=== PATIENT | female | born 1985 | race Caucasian/White ===

== ENCOUNTER 2017-10-14 06:26 | Inpatient (IN) | payer BC ==
[2017-10-14] MEDS ORDERED: Ondansetron 4 MG/2 ML SDV IVPUSH PRN (07:58)
[2017-10-14] MEDS ORDERED: Sodium Chloride 0.9% 10 ML Syringe FLUSH PRN ×2 (07:58→09:21)
[2017-10-14] MEDS ORDERED: Lactated Ringers 1,000 ML IV SCH ×3 (08:00→09:30)
[2017-10-14] MEDS ORDERED: fentaNYL 100 MCG/2 ML SDV IVPUSH PRN (08:11)
[2017-10-14] MEDS ORDERED: Oxytocin/Lactated Ringers 10 UNIT/1,000 ML BAG IV ONE (08:55)
[2017-10-14] MEDS ORDERED: Lidocaine 1% 50 ML MDV ONE (08:55)
[2017-10-14] MEDS ORDERED: Lidocaine 1% 50 ML MDV INJECT ONE (09:21)
[2017-10-14] MEDS ORDERED: Oxytocin/Lactated Ringers 10 UNIT/1,000 ML BAG IV SCH (09:30)
--- NOTE | 2017-10-14 09:58 | PCM.LDHP ---
L&D History of Present Illness - General Date of Service: 10/14/17 Admit Problem/Dx: Patient Status Order with Admit Dx/Problem 10/14/17 07:58 Patient Status [ADT] Routine 10/14/17 09:24 Patient Status [ADT] Routine Admission Diagnosis/Problem Admission Diagnosis/Problem labor Source of Information: Patient History Limitations: Reports: No Limitations - History of Present Illness Introduction:: 32 year old female at 32 weeks gestation started having vomiting and diarrhea yesterday and then started having abdominal cramping this am about 0500. She thinks that she may have had a fever yesterday, she was feeling really hot. She denied any respiratory symptoms. She presented to Labor and Delivery at 0630 and the monitor showed a reactive FHR and occasional uterine tightening. She was uncomfortable and vomited while here and had diarrhea as well. IV was started to bolus with fluids for dehydration and she was given IV zofran 4 mg and IV fentanyl at 0830 for the cramping. She had SROM at 0846 for large amount of clear fluid. The RN checked her and she was completely dilated and I was notified. Current complicated by RH negative status, given Rhogam on 09/20/17. She has anxiety and depression and continued her psych meds, sertraline and bupsirone and trazodone throughout her . She did receive her Tdap on 03/30 as well and had influenza vaccine on 06/24/17. Her previous delivery was at 39 weeks and was a for a 5 lb 15 oz boy. Pain Score: 10 - Related Data Allergies/Adverse Reactions: Allergies Allergy/AdvReac Type Severity Reaction Status Date / Time No Known Allergies Allergy Verified 10/14/17 07:31 Home Medications: Home Meds Vit #76/Iron,Carb/Fa [Pnv 29-1 Tablet] 1 tab PO DAILY 10/14/17 [History ] Sertraline [Zoloft] 100 mg PO DAILY 10/14/17 [History] busPIRone [Buspar] 15 mg PO BEDTIME 10/14/17 [History] diphenhydrAMINE [Benadryl] 25 mg PO BEDTIME 10/14/17 [History] traZODone 150 mg PO BEDTIME 10/14/17 [History] Past Medical History Psychiatric History: Reports: Anxiety, Depression - Infectious Disease History Infectious Disease History: Reports: Human Papilloma Virus (HPV) Social & Family History - Tobacco Use Smoking Status *Q: Never Smoker - Alcohol Use Alcohol Use History: No - Recreational Drug Use Recreational Drug Use: No - Living Situation & Occupation Living situation: Reports: Other (Currently in the process of a divorce. She has been living with the father of this baby in [place].) H&P Review of Systems - Review of Systems: Review Of Systems: See Below General: Reports: Fever HEENT: Reports: No Symptoms Pulmonary: Reports: No Symptoms Cardiovascular: Reports: No Symptoms Gastrointestinal: Reports: Abdominal Pain, Diarrhea, Nausea, Vomiting Genitourinary: Reports: No Symptoms Musculoskeletal: Reports: Back Pain Skin: Reports: No Symptoms Psychiatric: Reports: Anxiety Neurological: Reports: No Symptoms Hematologic/Lymphatic: Reports: No Symptoms Immunologic: Reports: No Symptoms L&D Exam - Exam Exam: See Below - Vital Signs Vital Signs: Last Vital Signs Temp 36.6 C 10/14/17 07:27 Pulse 100 10/14/17 07:27 Resp 20 10/14/17 07:27 BP 123/69 10/14/17 07:27 Pulse Ox Weight: 89.494 kg - OB Specific Contraction Frequency (min): 2 Contraction Intensity: Mild to Moderate Movement: Active Heart Tones: Present Heart Tones per Min: 150 Heart Rate (FHR) Variability: Moderate (6-25 bmp) Presentation: Vertex - Exam General: Alert, Oriented, Moderate Distress HEENT: Conjunctiva Clear, Other (dry mucus membranes) Neck: Supple Lungs: Clear to Auscultation, Normal Respiratory Effort Cardiovascular: Regular Rate, Regular Rhythm GI/Abdominal Exam: Normal Bowel Sounds, No Distention Rectal Exam: Deferred Genitourinary: Deferred Back Exam: Normal Inspection Extremities: Normal Inspection, No Pedal Edema Skin: Warm, Dry, Intact Neurological: Normal Speech Psychiatric: Alert, Anxious - Patient Data Lab Results Last 24 hrs: Laboratory Results - last 24 hr 10/14/17 10/14/17 10/14/17 Range/Units 08:20 08:20 09:44 WBC 13.73 H (3.98-10.04) K/mm3 RBC 4.54 (3.98-5.22) M/mm3 Hgb 13.6 (11.2-15.7) gm/L Hct 40.5 (34.1-44.9) % MCV 89.2 (79.4-94.8) fl MCH 30.0 (25.6-32.2) pg MCHC 33.6 (32.2-35.5) g/dl RDW Std Deviation 43.3 (36.4-46.3) fL Plt Count 247 (182-369) K/mm3 MPV 9.8 (9.4-12.3) fl Neut % (Auto) 83.3 H (34.0-71.1) % Lymph % (Auto) 7.6 L (19.3-51.7) % [place] % (Auto) 7.9 (4.7-12.5) % Eos % (Auto) 0.1 L (0.7-5.8) Baso % (Auto) 0.2 (0.1-1.2) % Neut # (Auto) 11.44 H (1.56-6.13) K/mm3 Lymph # (Auto) 1.04 L (1.18-3.74) K/mm3 [place] # (Auto) 1.08 H (0.24-0.36) K/mm3 Eos # (Auto) 0.01 L (0.04-0.36) K/mm3 Baso # (Auto) 0.03 (0.01-0.08) K/mm3 Manual Slide Review Normal smear Cord VBG pH 7.30 (7.28-7.40) Cord VBG pCO2 37.5 (32.8-38.6) Cord VBG pO2 23 L (28-32) Cord VBG HCO3 18 L (19-24) Cord VBG Base Excess -7.3 L (-4.4-0.4) Sodium 140 (136-145) mEq/L Potassium 3.4 L (3.5-5.1) mEq/L Chloride 105 (98-107) mEq/L Carbon Dioxide 17 L (21-32) mEq/L Anion Gap 21.4 H (5-15) BUN 8 (7-18) mg/dL Creatinine 0.9 (0.55-1.02) mg/dL Est Cr Clr Drug Dosing 84.01 mL/min Estimated GFR (MDRD) > 60 (>60) mL/min BUN/Creatinine Ratio 8.9 L (14-18) Glucose 129 H (74-106) mg/dL Calcium 9.1 (8.5-10.1) mg/dL Total Bilirubin 0.4 (0.2-1.0) mg/dL AST 12 L (15-37) U/L ALT 14 (14-59) U/L Alkaline Phosphatase 100 (46-116) U/L Total Protein 7.5 (6.4-8.2) g/dl Albumin 3.0 L (3.4-5.0) g/dl Globulin 4.5 gm/dL Albumin/Globulin Ratio 0.7 L (1-2) Result Diagrams: 10/14/17 08:20 10/14/17 08:20 - Problem List (1) labor in third trimester SNOMED Code(s): 1228151 ICD Code: O60.03 - LABOR WITHOUT DELIVERY, THIRD TRIMESTER Status: Acute Current Visit: Yes Qualifiers: labor delivery status: without delivery Qualified Code(s): O60.03 - labor without delivery, third trimester (2) Vomiting and diarrhea SNOMED Code(s): 964381165 ICD Code: R11.10 - VOMITING, UNSPECIFIED; R19.7 - DIARRHEA, UNSPECIFIED Status: Acute Current Visit: Yes (3) Dehydration SNOMED Code(s): 20518674 ICD Code: E86.0 - DEHYDRATION Status: Acute Current Visit: Yes Problem List Initiated/Reviewed/Updated: Yes Orders Last 24hrs: Active Orders 24 hr Category Date Time Status Patient Status Manage Transfer [TRANSFER] Routine ADT 10/14/17 09:37 Ordered Patient Status [ADT] Routine ADT 10/14/17 09:24 Active Activity as Tolerated [RC] PFP Care 10/14/17 09:21 Active Communication Order [RC] ASDIRECTED Care 10/14/17 09:21 Active Heart Tones [RC] ASDIRECTED Care 10/14/17 09:21 Active Monitoring [RC] CONTINUOUS Care 10/14/17 08:02 Active Non Stress Test [RC] PER UNIT ROUTINE Care 10/14/17 07:58 Active Notify Provider [RC] PFP Care 10/14/17 09:21 Active Notify Provider [RC] PRN Care 10/14/17 09:21 Active Peripheral IV Care [RC] . DIRECTED Care 10/14/17 08:09 Active Peripheral IV Care [RC] . DIRECTED Care 10/14/17 09:21 Active Vital Signs [RC] PER UNIT ROUTINE Care 10/14/17 07:58 Active Vital Signs [RC] PER UNIT ROUTINE Care 10/14/17 09:21 Active Clear Liquid Diet [DIET] Diet 10/14/17 Breakfast Active CULTURE URINE [RM] Stat Lab 10/14/17 07:58 Ordered UA W/MICROSCOPIC [URIN] Stat Lab 10/14/17 07:58 Ordered Lactated Ringers [Ringers, Lactated] 1,000 ml Med 10/14/17 08:00 Active IV .BOLUS Lactated Ringers [Ringers, Lactated] 1,000 ml Med 10/14/17 08:00 Active IV ASDIRECTED Lactated Ringers [Ringers, Lactated] 1,000 ml Med 10/14/17 09:30 Active IV ASDIRECTED Ondansetron [Zofran] Med 10/14/17 07:58 Active 4 mg IVPUSH Q4H PRN Oxytocin/Lactated Ringers [Pitocin in LR 10 Units/1,000 Med 10/14/17 09:30 Active ML] 10 unit in 1,000 ml IV .CONTINUOUS Sodium Chloride 0.9% [Saline Flush] Med 10/14/17 07:58 Active 10 ml FLUSH ASDIRECTED PRN Sodium Chloride 0.9% [Saline Flush] Med 10/14/17 09:21 Active 10 ml FLUSH ASDIRECTED PRN fentaNYL [Sublimaze] Med 10/14/17 08:11 Active 50 mcg IVPUSH Q1H PRN Electronic Heart Tones Ext w TOCO [WOMSER] Oth 10/14/17 09:21 Ordered Routine Electronic Heart Tones Internal [WOMSER] Per Unit Oth 10/14/17 09:21 Ordered Routine Peripheral IV Insertion Adult [OM.PC] Routine Oth 10/14/17 09:21 Ordered Peripheral IV Insertion Adult [OM.PC] Urgent Oth 10/14/17 07:58 Ordered Resuscitation Status Routine Resus Stat 10/14/17 07:58 Ordered Medication Orders Fentanyl (Sublimaze) 50 mcg IVPUSH Q1H PRN PRN Reason: Pain Last Admin: 10/14/17 08:36 Dose: 50 mcg Lactated Ringer's (Ringers, Lactated) 1,000 mls @ 1,000 mls/hr IV .BOLUS CHERIE Last Admin: 10/14/17 08:00 Dose: 1,000 mls/hr Lactated Ringer's (Ringers, Lactated) 1,000 mls @ 500 mls/hr IV ASDIRECTED CHERIE Lactated Ringer's (Ringers, Lactated) 1,000 mls @ 100 mls/hr IV ASDIRECTED CHERIE Oxytocin/Lactated Ringer's (Pitocin In Lr 10 Units/1,000 Ml) 10 unit in 1,000 mls @ 500 mls/hr IV .CONTINUOUS CHERIE Ondansetron HCl (Zofran) 4 mg IVPUSH Q4H PRN PRN Reason: Nausea/Vomiting Last Admin: 10/14/17 08:32 Dose: 4 mg Sodium Chloride (Saline Flush) 10 ml FLUSH ASDIRECTED PRN PRN Reason: Keep Vein Open Sodium Chloride (Saline Flush) 10 ml FLUSH ASDIRECTED PRN PRN Reason: Keep Vein Open Assessment/Plan Comment:: 32 year old female presented with vomiting and diarrhea and abdominal cramping at 32 weeks gestation and determined to be in labor with subsequent SROM. Will deliver here with pediatrics present and plan to transfer to NICU in [place] once baby is stable.
[2017-10-14] MEDS ORDERED: NS + KCl 20mEq/L 1,000 ML IV SCH (10:45)
--- NOTE | 2017-10-14 10:45 | PCM.DEL ---
L & D Note - General Info Date of Service: 10/14/17 Mother's Due Date: 12/05/17 - Delivery Note Labor: Spontaneous Delivery Outcome: Livebirth Infant Delivery Method: Spontaneous Vaginal Delivery-Single Infant Delivery Mode: Spontaneous Presentation: Right Occiput Anterior (MI) Nuchal Cord: None Anesthesia Type: Other (see below) (fentanyl 50 mcg iv) Amniotic Fluid Description: Clear Episiotomy Type: None Laceration: Labial Suture type: Vicryl Suture size: 4-0 Placenta: Intact, Spontaneous Cord: 3 Vessels Estimated Blood Loss: 100 Resuscitation Needed: Yes [place]: Suctioned, Bulb Syringe, Warmer Used (Baby was bagged and given oxygen) Provider: Eric Wagner Score 1 min: 2 Score 5 min: 6 Score 10 min: 8 Delivery Comments (Free Text/Narrative):: Precipitous delivery of male infant after SROM. Head delivered from MI position, there was no nuchal cord. The rest of the baby delivered without difficulty. Baby was dried and stimulated and cord was clamped and cut and baby passed to the senior software developer for further resuscitation. Cord blood taken and segment of cord sent to do cord gases. Pitocin IV infusion started after delivery of the baby. Placenta delivered spontaneously and was intact. There were 3 vessels in the cord. Fundus firmed down well. There was a small laceration on the right labia that was repaired with 2 simple sutures using 4-0 Vicryl.EBL 100 ml. Mom is stable and baby is stable in the nursery awaiting transport to the NICU in [place]. - Patient Data Vitals - Most Recent: Last Vital Signs Temp 36.6 C 10/14/17 07:27 Pulse 100 10/14/17 07:27 Resp 20 10/14/17 07:27 BP 123/69 10/14/17 07:27 Pulse Ox Weight - Most Recent: 89.494 kg I&O - Last 24 Hours: Intake & Output 10/13/17 10/14/17 10/14/17 22:59 06:59 14:59 Intake Total 1999 Balance 1999 Lab Results Last 24 Hours: Laboratory Results - last 24 hr 10/14/17 10/14/17 10/14/17 Range/Units 08:20 08:20 09:44 WBC 13.73 H (3.98-10.04) K/mm3 RBC 4.54 (3.98-5.22) M/mm3 Hgb 13.6 (11.2-15.7) gm/L Hct 40.5 (34.1-44.9) % MCV 89.2 (79.4-94.8) fl MCH 30.0 (25.6-32.2) pg MCHC 33.6 (32.2-35.5) g/dl RDW Std Deviation 43.3 (36.4-46.3) fL Plt Count 247 (182-369) K/mm3 MPV 9.8 (9.4-12.3) fl Neut % (Auto) 83.3 H (34.0-71.1) % Lymph % (Auto) 7.6 L (19.3-51.7) % [place] % (Auto) 7.9 (4.7-12.5) % Eos % (Auto) 0.1 L (0.7-5.8) Baso % (Auto) 0.2 (0.1-1.2) % Neut # (Auto) 11.44 H (1.56-6.13) K/mm3 Lymph # (Auto) 1.04 L (1.18-3.74) K/mm3 [place] # (Auto) 1.08 H (0.24-0.36) K/mm3 Eos # (Auto) 0.01 L (0.04-0.36) K/mm3 Baso # (Auto) 0.03 (0.01-0.08) K/mm3 Manual Slide Review Normal smear Cord VBG pH 7.30 (7.28-7.40) Cord VBG pCO2 37.5 (32.8-38.6) Cord VBG pO2 23 L (28-32) Cord VBG HCO3 18 L (19-24) Cord VBG Base Excess -7.3 L (-4.4-0.4) Sodium 140 (136-145) mEq/L Potassium 3.4 L (3.5-5.1) mEq/L Chloride 105 (98-107) mEq/L Carbon Dioxide 17 L (21-32) mEq/L Anion Gap 21.4 H (5-15) BUN 8 (7-18) mg/dL Creatinine 0.9 (0.55-1.02) mg/dL Est Cr Clr Drug Dosing 84.01 mL/min Estimated GFR (MDRD) > 60 (>60) mL/min BUN/Creatinine Ratio 8.9 L (14-18) Glucose 129 H (74-106) mg/dL Calcium 9.1 (8.5-10.1) mg/dL Total Bilirubin 0.4 (0.2-1.0) mg/dL AST 12 L (15-37) U/L ALT 14 (14-59) U/L Alkaline Phosphatase 100 (46-116) U/L Total Protein 7.5 (6.4-8.2) g/dl Albumin 3.0 L (3.4-5.0) g/dl Globulin 4.5 gm/dL Albumin/Globulin Ratio 0.7 L (1-2) Med Orders - Current: Current Medications Fentanyl (Sublimaze) 50 mcg IVPUSH Q1H PRN PRN Reason: Pain Last Admin: 10/14/17 08:36 Dose: 50 mcg Lactated Ringer's (Ringers, Lactated) 1,000 mls @ 1,000 mls/hr IV .BOLUS CHERIE Last Admin: 10/14/17 08:00 Dose: 1,000 mls/hr Lactated Ringer's (Ringers, Lactated) 1,000 mls @ 500 mls/hr IV ASDIRECTED CHERIE Last Admin: 10/14/17 10:12 Dose: 500 mls/hr Lactated Ringer's (Ringers, Lactated) 1,000 mls @ 100 mls/hr IV ASDIRECTED CHERIE Oxytocin/Lactated Ringer's (Pitocin In Lr 10 Units/1,000 Ml) 10 unit in 1,000 mls @ 500 mls/hr IV .CONTINUOUS CHERIE Last Admin: 10/14/17 08:57 Dose: 500 mls/hr Potassium Chloride/Sodium Chloride (Normal Saline With 20 Meq Kcl) 1,000 mls @ 150 mls/hr IV ASDIRECTED CHERIE Ondansetron HCl (Zofran) 4 mg IVPUSH Q4H PRN PRN Reason: Nausea/Vomiting Last Admin: 10/14/17 08:32 Dose: 4 mg Sodium Chloride (Saline Flush) 10 ml FLUSH ASDIRECTED PRN PRN Reason: Keep Vein Open Sodium Chloride (Saline Flush) 10 ml FLUSH ASDIRECTED PRN PRN Reason: Keep Vein Open Discontinued Medications Oxytocin/Lactated Ringer's (Pitocin In Lr 10 Units/1,000 Ml) Confirm Administered Dose 10 unit in 1,000 mls @ as directed IV .STK-MED ONE Stop: 10/14/17 08:56 Last Admin: 10/14/17 10:12 Dose: Not Given Lidocaine HCl (Xylocaine 1%) Confirm Administered Dose 50 ml .ROUTE .STK-MED ONE Stop: 10/14/17 08:56 Last Admin: 10/14/17 10:12 Dose: Not Given Lidocaine HCl (Xylocaine 1%) 50 ml INJECT ONETIME ONE Stop: 10/14/17 09:22 Last Admin: 10/14/17 08:55 Dose: 50 ml - Problem List & Annotations (1) labor in third trimester SNOMED Code(s): 3427008 Code(s): O60.03 - LABOR WITHOUT DELIVERY, THIRD TRIMESTER Status: Acute Current Visit: Yes Qualifiers: labor delivery status: without delivery Qualified Code(s): O60.03 - labor without delivery, third trimester (2) Vomiting and diarrhea SNOMED Code(s): 038699822 Code(s): R11.10 - VOMITING, UNSPECIFIED; R19.7 - DIARRHEA, UNSPECIFIED Status: Acute Current Visit: Yes (3) Dehydration SNOMED Code(s): 85047473 Code(s): E86.0 - DEHYDRATION Status: Acute Current Visit: Yes - Problem List Review Problem List Initiated/Reviewed/Updated: Yes - My Orders Last 24 Hours: My Active Orders 10/14/17 07:58 Non Stress Test [RC] PER UNIT ROUTINE Vital Signs [RC] PER UNIT ROUTINE CULTURE URINE [RM] Stat UA W/MICROSCOPIC [URIN] Stat Ondansetron [Zofran] 4 mg IVPUSH Q4H PRN Sodium Chloride 0.9% [Saline Flush] 10 ml FLUSH ASDIRECTED PRN Peripheral IV Insertion Adult [OM.PC] Urgent Resuscitation Status Routine 10/14/17 08:00 Lactated Ringers [Ringers, Lactated] 1,000 ml IV .BOLUS Lactated Ringers [Ringers, Lactated] 1,000 ml IV ASDIRECTED 10/14/17 08:02 Monitoring [RC] CONTINUOUS 10/14/17 08:09 Peripheral IV Care [RC] . DIRECTED 10/14/17 08:11 fentaNYL [Sublimaze] 50 mcg IVPUSH Q1H PRN 10/14/17 09:21 Activity as Tolerated [RC] PFP Communication Order [RC] ASDIRECTED Heart Tones [RC] ASDIRECTED Notify Provider [RC] PFP Notify Provider [RC] PRN Peripheral IV Care [RC] . DIRECTED Vital Signs [RC] PER UNIT ROUTINE Sodium Chloride 0.9% [Saline Flush] 10 ml FLUSH ASDIRECTED PRN Electronic Heart Tones Ext w TOCO [WOMSER] Routine Electronic Heart Tones Internal [WOMSER] Per Unit Routine Peripheral IV Insertion Adult [OM.PC] Routine 10/14/17 09:24 Patient Status [ADT] Routine 10/14/17 09:30 Lactated Ringers [Ringers, Lactated] 1,000 ml IV ASDIRECTED Oxytocin/Lactated Ringers [Pitocin in LR 10 Units/1,000 ML] 10 unit in 1,000 ml IV .CONTINUOUS 10/14/17 09:37 Patient Status Manage Transfer [TRANSFER] Routine 10/14/17 10:45 NS + KCl 20mEq/L [Normal Saline with 20 mEq KCl] 1,000 ml IV ASDIRECTED 10/14/17 Breakfast Clear Liquid Diet [DIET] - Plan Plan:: 32 year old female presented with vomiting and diarrhea and abdominal cramping at 32 weeks gestation and determined to be in labor with subsequent SROM. Will deliver here with pediatrics present and plan to transfer to NICU in [place] once baby is stable.
[2017-10-14] MEDS ORDERED: Witch Hazel Medicated Pads 100/Jar TOP PRN (10:59)
[2017-10-14] MEDS ORDERED: Benzocaine/Menthol 20%-0.5% Spray 56 GM Canister TOP PRN (10:59)
[2017-10-14] MEDS ORDERED: Ibuprofen 800 MG Tab PO PRN (10:59)
--- NOTE | 2017-10-14 11:18 | PCM.DCSUM1 ---
Discharge Summary - Hospital Course Free Text/Narrative:: 32 year old female at 32 weeks gestation started having vomiting and diarrhea yesterday and then started having abdominal cramping this am about 0500. She thinks that she may have had a fever yesterday, she was feeling really hot. She denied any respiratory symptoms. She presented to Labor and Delivery at 0630 and the monitor showed a reactive FHR and occasional uterine tightening. She was uncomfortable and vomited while here and had diarrhea as well. IV was started to bolus with fluids for dehydration and she was given IV zofran 4 mg and IV fentanyl at 0830 for the cramping. She had SROM at 0846 for large amount of clear fluid. The RN checked her and she was completely dilated and I was notified. Current complicated by RH negative status, given Rhogam on 09/20/17. She has anxiety and depression and continued her psych meds, sertraline and bupsirone and trazodone throughout her . She did receive her Tdap on 03/30 as well and had influenza vaccine on 06/24/17. Her previous delivery was at 39 weeks and was a for a 5 lb 15 oz boy. 32 year old female presented with vomiting and diarrhea and abdominal cramping at 32 weeks gestation and determined to be in labor with subsequent SROM. Will deliver here with pediatrics present and plan to transfer to NICU in [place] once baby is stable. Precipitous delivery of male after SROM. Head delivered from MI position, there was no nuchal cord. The rest of the baby delivered without difficulty. Baby was dried and stimulated and cord was clamped and cut and baby passed to the edge finisher for further resuscitation. Cord blood taken and segment of cord sent to do cord gases. Pitocin IV infusion started after delivery of the baby. Placenta delivered spontaneously and was intact. There were 3 vessels in the cord. Fundus firmed down well. There was a small laceration on the right labia that was repaired with 2 simple sutures using 4-0 Vicryl.EBL 100 ml. Mom is stable and baby is stable in the nursery awaiting transport to the NICU in [place]. - Discharge Data Discharge Date: 10/14/17 Discharge Disposition: Home, Self-Care 01 Condition: Good - Discharge Diagnosis/Problem(s) (1) labor third trimester with delivery third trimester SNOMED Code(s): 6037110, 562722222 ICD Code: O60.14X0 - LABOR THIRD TRI W DELIVERY THIRD TRI, UNSP Status: Acute Priority: High Current Visit: Yes Qualifiers: Fetus number: single or unspecified fetus Qualified Code(s): O60.14X0 - labor third trimester with delivery third trimester, not applicable or unspecified (2) Vomiting and diarrhea SNOMED Code(s): 510140871 ICD Code: R11.10 - VOMITING, UNSPECIFIED; R19.7 - DIARRHEA, UNSPECIFIED Status: Acute Current Visit: Yes (3) Dehydration SNOMED Code(s): 17544349 ICD Code: E86.0 - DEHYDRATION Status: Acute Current Visit: Yes - Patient Instructions Diet: Usual Diet as Tolerated, Drink 8-10+ Glasses/Day Activity: As Tolerated Driving: Do Not Drive (No driving until feeling better.) Showering/Bathing: May Shower Notify Provider of: Fever, Increased Pain, Swelling and Redness, Drainage, Nausea and/or Vomiting - Discharge Plan Prescriptions/Med Rec: Ibuprofen 800 mg PO Q8H PRN #30 tablet PRN Reason: Pain Home Medications: Home Meds Ibuprofen 800 mg PO Q8H PRN #30 tablet 10/14/17 [Rx] Vit #76/Iron,Carb/Fa [Pnv 29-1 Tablet] 1 tab PO DAILY 10/14/17 [History ] Sertraline [Zoloft] 100 mg PO DAILY 10/14/17 [History] busPIRone [Buspar] 15 mg PO BEDTIME 10/14/17 [History] diphenhydrAMINE [Benadryl] 25 mg PO BEDTIME 10/14/17 [History] traZODone 150 mg PO BEDTIME 10/14/17 [History] Other Amb Orders: DME for Prescription [COMM] Location: None Selected Patient Handouts: Your Premature or Ill Baby, Breast Pumping Tips , Eating Plan for Women, Storing Breast Milk Referrals: Shayy Rayo MD [Primary Care Provider] - (6 weeks) - Discharge Summary/Plan Comment DC Time >30 min.: No - General Info Date of Service: 10/14/17 Admission Dx/Problem (Free Text: Patient Status Order with Admit Dx/Problem 10/14/17 07:58 Patient Status [ADT] Routine 10/14/17 09:24 Patient Status [ADT] Routine Admission Diagnosis/Problem Admission Diagnosis/Problem labor Functional Status: Reports: Pain Controlled, Tolerating Diet, Ambulating, Urinating - Review of Systems General: Reports: No Symptoms HEENT: Reports: No Symptoms Pulmonary: Reports: No Symptoms Cardiovascular: Reports: No Symptoms Gastrointestinal: Reports: No Symptoms Genitourinary: Reports: No Symptoms Musculoskeletal: Reports: No Symptoms Skin: Reports: No Symptoms Neurological: Reports: No Symptoms Psychiatric: Reports: No Symptoms - Patient Data Vitals - Most Recent: Last Vital Signs Temp 36.6 C 10/14/17 07:27 Pulse 100 10/14/17 07:27 Resp 20 10/14/17 07:27 BP 123/69 10/14/17 07:27 Pulse Ox Last Vital Signs Temp 36.3 C 10/14/17 15:36 Pulse 70 10/14/17 15:36 Resp 18 10/14/17 15:36 BP 111/59 L 10/14/17 15:36 Pulse Ox Weight - Most Recent: 89.494 kg I&O - Last 24 hours: Intake & Output 10/13/17 10/14/17 10/14/17 22:59 06:59 14:59 Intake Total 2200 Balance 2200 Lab Results - Last 24 hrs: Laboratory Results - last 24 hr 10/14/17 10/14/17 10/14/17 Range/Units 08:20 08:20 09:44 WBC 13.73 H (3.98-10.04) K/mm3 RBC 4.54 (3.98-5.22) M/mm3 Hgb 13.6 (11.2-15.7) gm/L Hct 40.5 (34.1-44.9) % MCV 89.2 (79.4-94.8) fl MCH 30.0 (25.6-32.2) pg MCHC 33.6 (32.2-35.5) g/dl RDW Std Deviation 43.3 (36.4-46.3) fL Plt Count 247 (182-369) K/mm3 MPV 9.8 (9.4-12.3) fl Neut % (Auto) 83.3 H (34.0-71.1) % Lymph % (Auto) 7.6 L (19.3-51.7) % [place] % (Auto) 7.9 (4.7-12.5) % Eos % (Auto) 0.1 L (0.7-5.8) Baso % (Auto) 0.2 (0.1-1.2) % Neut # (Auto) 11.44 H (1.56-6.13) K/mm3 Lymph # (Auto) 1.04 L (1.18-3.74) K/mm3 [place] # (Auto) 1.08 H (0.24-0.36) K/mm3 Eos # (Auto) 0.01 L (0.04-0.36) K/mm3 Baso # (Auto) 0.03 (0.01-0.08) K/mm3 Manual Slide Review Normal smear Cord VBG pH 7.30 (7.28-7.40) Cord VBG pCO2 37.5 (32.8-38.6) Cord VBG pO2 23 L (28-32) Cord VBG HCO3 18 L (19-24) Cord VBG Base Excess -7.3 L (-4.4-0.4) Sodium 140 (136-145) mEq/L Potassium 3.4 L (3.5-5.1) mEq/L Chloride 105 (98-107) mEq/L Carbon Dioxide 17 L (21-32) mEq/L Anion Gap 21.4 H (5-15) BUN 8 (7-18) mg/dL Creatinine 0.9 (0.55-1.02) mg/dL Est Cr Clr Drug Dosing 84.01 mL/min Estimated GFR (MDRD) > 60 (>60) mL/min BUN/Creatinine Ratio 8.9 L (14-18) Glucose 129 H (74-106) mg/dL Calcium 9.1 (8.5-10.1) mg/dL Total Bilirubin 0.4 (0.2-1.0) mg/dL AST 12 L (15-37) U/L ALT 14 (14-59) U/L Alkaline Phosphatase 100 (46-116) U/L Total Protein 7.5 (6.4-8.2) g/dl Albumin 3.0 L (3.4-5.0) g/dl Globulin 4.5 gm/dL Albumin/Globulin Ratio 0.7 L (1-2) Med Orders - Current: Current Medications Benzocaine/Menthol (Dermoplast Pain Relief [place]) 0 gm TOP ASDIRECTED PRN PRN Reason: Perineal Comfort Measure Potassium Chloride/Sodium Chloride (Normal Saline With 20 Meq Kcl) 1,000 mls @ 150 mls/hr IV ASDIRECTED [facility] Last Admin: 10/14/17 10:52 Dose: 150 mls/hr Ibuprofen (Motrin) 800 mg PO Q8H PRN PRN Reason: Mild pain or fever Nilo Hutson (Tucks) 1 pad TOP ASDIRECTED PRN PRN Reason: Hemorrhoid pain Discontinued Medications Fentanyl (Sublimaze) 50 mcg IVPUSH Q1H PRN PRN Reason: Pain Last Admin: 10/14/17 08:36 Dose: 50 mcg Lactated Ringer's (Ringers, Lactated) 1,000 mls @ 1,000 mls/hr IV .BOLUS CHERIE Last Admin: 10/14/17 08:00 Dose: 1,000 mls/hr Lactated Ringer's (Ringers, Lactated) 1,000 mls @ 500 mls/hr IV ASDIRECTED [facility] Last Admin: 10/14/17 10:12 Dose: 500 mls/hr Oxytocin/Lactated Ringer's (Pitocin In Lr 10 Units/1,000 Ml) Confirm Administered Dose 10 unit in 1,000 mls @ as directed IV .STK-MED ONE Stop: 10/14/17 08:56 Last Admin: 10/14/17 10:12 Dose: Not Given Lactated Ringer's (Ringers, Lactated) 1,000 mls @ 100 mls/hr IV ASDIRECTED [facility] Oxytocin/Lactated Ringer's (Pitocin In Lr 10 Units/1,000 Ml) 10 unit in 1,000 mls @ 500 mls/hr IV .CONTINUOUS CHERIE Last Admin: 10/14/17 08:57 Dose: 500 mls/hr Lidocaine HCl (Xylocaine 1%) Confirm Administered Dose 50 ml .ROUTE .STK-MED ONE Stop: 10/14/17 08:56 Last Admin: 10/14/17 10:12 Dose: Not Given Lidocaine HCl (Xylocaine 1%) 50 ml INJECT ONETIME ONE Stop: 10/14/17 09:22 Last Admin: 10/14/17 08:55 Dose: 50 ml Ondansetron HCl (Zofran) 4 mg IVPUSH Q4H PRN PRN Reason: Nausea/Vomiting Last Admin: 10/14/17 08:32 Dose: 4 mg Sodium Chloride (Saline Flush) 10 ml FLUSH ASDIRECTED PRN PRN Reason: Keep Vein Open Sodium Chloride (Saline Flush) 10 ml FLUSH ASDIRECTED PRN PRN Reason: Keep Vein Open - Exam General: Reports: Alert, Oriented, No Acute Distress HEENT: Reports: Pupils Equal, Pupils Reactive Neck: Reports: Supple Lungs: Reports: Clear to Auscultation, Normal Respiratory Effort Cardiovascular: Reports: Regular Rate, Regular Rhythm GI/Abdominal Exam: Normal Bowel Sounds, Soft, No Distention (Female) Exam: Other (Fundus 2 fingers below umbilicus and firm) Skin: Reports: Warm, Dry Psy/Mental Status: Reports: Alert, Normal Affect, Normal Mood
== END 2017-10-14 15:56 | disposition home or self-care (01) | DRG 560 ==
LOC: JD.OBCHECK 06:26 → JD.OB 06:29 → JD.OBCHECK 08:55 → OBSVTOIN 08:56 → JD.OB 08:56
PROVIDERS: ADMIT Family Medicine; ATTEND Family Medicine
PROC: 10E0XZZ Delivery of Products of Conception, External Approach (ICD-10-PCS; principal; 2017-10-14)
PROC: 0UQMXZZ Repair Vulva, External Approach (ICD-10-PCS; 2017-10-14)
PROC: 6A550ZT Pheresis of Cord Blood Stem Cells, Single (ICD-10-PCS; 2017-10-14)
DX: O60.14X0 Preterm labor third trimester with preterm delivery third trimester, not applicable or unspecified (principal); O99.284 Endocrine, nutritional and metabolic diseases complicating childbirth; E86.0 Dehydration; O98.32 Other infections with a predominantly sexual mode of transmission complicating childbirth; A63.0 Anogenital (venereal) warts; O99.344 Other mental disorders complicating childbirth; F41.9 Anxiety disorder, unspecified; F32.9 Major depressive disorder, single episode, unspecified; Z3A.32 32 weeks gestation of pregnancy; Z37.0 Single live birth; O70.0 First degree perineal laceration during delivery; O62.3 Precipitate labor; O75.89 Other specified complications of labor and delivery; R19.7 Diarrhea, unspecified; R11.10 Vomiting, unspecified; Z79.899 Other long term (current) drug therapy
CPT/HCPCS: 36415; 59025; 59300; 59409; 80053; 81001; 82803; 85025; 87086; A9270-GY; J2405; J2590; J3010; J3480; J7120